=== PATIENT | female | born 1955 | race Caucasian/White ===

== ENCOUNTER 2022-05-04 18:51 | Emergency (ER) | payer MEDICARE ==
[~2022-05-04] VITALS: Ht 152.4 cm; Wt 84.1 kg
[~2022-05-04 18:51] MED LIST: AIRBORNE; ANASTROZOLE1 MG PO; B COMPLE2 PO; D3250 MCG PO; LEVOTHYROXIN25 MC1 PO; TURMERI1 PO
[2022-05-04 19:26] LABS: HEMATOCRIT 39.8 % (37.0-47.0); HEMOGLOBIN 13.4 g/dl (12.0-16.0); IMMATURE GRANULOCYTES 0.2 % (0.0-5.0); MEAN CELL VOLUME 103.4 fL CALC (80.0-100.0); MEAN CORPUSCULAR HGB 34.8 pG CALC (26.0-32.0); MEAN CORPUSCULAR HGB CONC 33.7 g/dL CAL (32.0-36.0); NEUT# 3.93 thou/uL (2.00-7.15); RED BLOOD COUNT 3.85 mill/uL (4.20-5.60); RED CELL DISTRI WIDTH 12.1 % (11.5-15.5)
[2022-05-04 19:36] LABS: ALBUMIN 4.2 g/dL (3.2-5.0); ALKALINE PHOSPHATASE 42 u/l (38-126); ANION GAP 14 (6-22 (CALC)); BILIRUBIN, TOTAL 0.3 mg/dL (0.0-1.4); BUN 15 mg/dL (8-23); BUN/CREATININE RATIO 21 (12-20 (CALC)); CARBON DIOXIDE 24 mmol/l (22-30); CHLORIDE 101 mmol/l (95-108); CREATININE 0.7 mg/dL (0.5-1.0); GFR FOR AFR.AMER. > 60 ML/MIN (>=60 (CALC)); GFR OTHER RACES > 60 ML/MIN (>=60 (CALC)); POTASSIUM 3.3 mmol/l (3.5-5.1); SGOT/AST 32 u/l (9-36); SODIUM 136 mmol/l (137-146); TOTAL PROTEIN 7.3 g/dL (6.3-8.2)
[2022-05-04 19:45] VITALS: BP 147/78
[2022-05-04 20:00] VITALS: BP 159/85
[2022-05-04 20:16] VITALS: BP 160/88
[2022-05-04 20:29] LABS: URINE BILIRUBIN - DIPSTICK NEGATIVE (NEGATIVE); URINE BLOOD DIPSTICK NEGATIVE (NEGATIVE); URINE COLOR YELLOW; URINE GLUCOSE - DIPSTICK NEGATIVE (NEGATIVE); URINE KETONE NEGATIVE (NEGATIVE); URINE LEUK ESTERASE NEGATIVE (NEGATIVE); URINE NITRITE - DIPSTICK NEGATIVE (Negative); URINE PH 5.5 (4.5-8.0); URINE PROTEIN - DIPSTICK NEGATIVE (NEG-TRACE); URINE SPECIFIC GRAVITY <=1.005; URINE UROBILINOGEN - DIPSTICK 0.2 E.U./dL (0.2)
[2022-05-04 20:30] VITALS: BP 159/83
[2022-05-04 20:59] VITALS: BP 159/83
== END 2022-05-04 20:45 | disposition short-term general hospital (02) ==
LOC: ED 18:51
PROVIDERS: Family Medicine
DX: S82.831A Other fracture of upper and lower end of right fibula, initial encounter for closed fracture (principal); S82.191A Other fracture of upper end of right tibia, initial encounter for closed fracture; I10 Essential (primary) hypertension; W10.8XXA Fall (on) (from) other stairs and steps, initial encounter; Y92.028 Other place in mobile home as the place of occurrence of the external cause; Z20.822 Contact with and (suspected) exposure to COVID-19
CPT/HCPCS: L1830

== ENCOUNTER 2023-08-10 07:29 | Day surgery (SDC) | payer MEDICARE ==
[~2023-08-10] VITALS: Ht 152.4 cm; Wt 76.7 kg
[~2023-08-10 07:29] MED LIST changes: +ALENDRONATE10 MG PO; +CALCI17 PO; +EZETIMIBE10 MG
[2023-08-10 10:24] VITALS: BP 145/85
== END 2023-08-10 10:16 | disposition home or self-care (01) ==
LOC: ORM 07:29
PROVIDERS: ATTEND Surgery
PROC: 0DBK8ZX Excision of Ascending Colon, Via Natural or Artificial Opening Endoscopic, Diagnostic (ICD-10-PCS; principal; 2023-08-10)
DX: D12.2 Benign neoplasm of ascending colon (principal); Q43.9 Congenital malformation of intestine, unspecified; K64.8 Other hemorrhoids; Z86.010 Personal history of colon polyps; Z85.3 Personal history of malignant neoplasm of breast; Z80.0 Family history of malignant neoplasm of digestive organs